=== PATIENT | male | born 1980 ===

== ENCOUNTER 2017-08-13 10:21 | Emergency (ER) | payer SELFPAY ==
[2017-08-13 10:38] VITALS: BP 115/69; PULSE 78; RESP 20; TEMP 98.4; O2SAT 98
--- NOTE | 2017-08-13 13:16 | ED PDOC ---
HPI: Back Time Seen by Provider: 08/13/17 10:55 Chief Complaint (Nursing): Back Pain Chief Complaint (Provider): back pain History Per: Patient History/Exam Limitations: no limitations Additional Complaint(s): 37yo M in ED for eval of lower back pain sustained this AM after lifting books noted sharp intense pain to mid lower back with radiation to LE and associated tingling to LE with worsened pain with ROM of back. no saddle anaesthesia no incontinence no nausea or vomiting. Past Medical History Reviewed: Historical Data, Nursing Documentation, Vital Signs Vital Signs: Last Vital Signs Temp 98.4 F 08/13/17 10:37 Pulse 78 08/13/17 10:37 Resp 20 08/13/17 10:37 BP 115/69 08/13/17 10:37 Pulse Ox 98 08/13/17 10:37 - Family History Family History: States: No Known Family Hx - Home Medications Home Medications: Ambulatory Orders Medication Instructions Recorded Cyclobenzaprine [Cyclobenzaprine 10 mg PO BID #14 tab 08/13/17 HCl] Ibuprofen [Motrin] 400 mg PO Q6 #30 tab 08/13/17 Tramadol HCl [Ultram] 50 mg PO Q6 #15 tab 08/13/17 - Allergies Allergies/Adverse Reactions: Allergies Allergy/AdvReac Type Severity Reaction Status Date / Time No Known Allergies Allergy Verified 08/13/17 10:36 Review of Systems ROS Statement: Except As Marked, All Systems Reviewed And Found Negative Constitutional: Negative for: Fever, Chills Musculoskeletal: Positive for: Back Pain Physical Exam - Reviewed Nursing Documentation Reviewed: Yes Vital Signs Reviewed: Yes - Physical Exam Appears: Positive for: Non-toxic, No Acute Distress, Uncomfortable Head Exam: Positive for: ATRAUMATIC, NORMAL INSPECTION, NORMOCEPHALIC Skin: Positive for: Normal Color, Warm Cardiovascular/Chest: Positive for: Regular Rate, Rhythm Respiratory: Positive for: CNT, Normal Breath Sounds Gastrointestinal/Abdominal: Positive for: Normal Exam, Bowel Sounds, Soft. Negative for: Tenderness Back: Positive for: Vertebral Tenderness (lumbar midline tenderness. ), Decreased ROM, Muscle Spasm. Negative for: L CVA Tenderness, R CVA Tenderness Extremity: Positive for: Normal ROM Neurologic/Psych: Positive for: Alert, Oriented - ECG O2 Sat by Pulse Oximetry: 98 - CT Scan/US ct scan Other Rad Studies (CT/US): Radiology Report Reviewed (multiple disc buldge) - Progress ED Course And Treament: pt given torodol and flexril and re-evaluated. pt still with pain will get Ct scan. of lumbar spine. Medical Decision Making Medical Decision Making: pt with disc buldge will need pain control and f.u with ortho an physical tx. Disposition - Clinical Impression Clinical Impression: Bulging lumbar disc - Patient ED Disposition Is Patient to be Admitted: No Counseled Patient/Family Regarding: Studies Performed, Diagnosis, Need For Followup, Rx Given - Disposition Referrals: FAMILY PROVIDER,NO [Primary Care Provider] - [facility] [Outside] [facility] [Outside] [facility] [Outside] Disposition: Routine/Home Disposition Time: 13:22 Condition: STABLE Prescriptions: Cyclobenzaprine [Cyclobenzaprine HCl] 10 mg PO BID #14 tab Ibuprofen [Motrin] 400 mg PO Q6 #30 tab Tramadol HCl [Ultram] 50 mg PO Q6 #15 tab Instructions: Lumbar Disc Herniation (ED), Back Exercises (ED) Forms: [facility] ED School/Work Excuse
--- NOTE | 2017-08-13 13:18 | CT ---
PROCEDURE: CT Lumbar Spine without contrast HISTORY: injury to lumbar from work COMPARISON: None. TECHNIQUE: Axial computed tomography images were obtained of the lumbar spine without the use of intravenous contrast. Coronal and sagittal reformatted images were created and reviewed. Radiation dose: Total exam DLP = 313.82 mGy-cm. This CT exam was performed using one or more of the following dose reduction techniques: Automated exposure control, adjustment of the mA and/or kV according to patient size, and/or use of iterative reconstruction technique. FINDINGS: VERTEBRAE: The vertebral bodies are maintained in height. The transverse processes and posterior elements appear intact. Normal vertebral alignment is maintained. DISCS/SPINAL CANAL/NEURAL FORAMINA: L1-2: Unremarkable. L2-3: Unremarkable. L3-4: Diffuse posterior disc bulge. Mild right neural foraminal stenosis. No left neural foraminal stenosis. No central spinal canal stenosis. L4-5: Broad-based midline disc herniation superimposed upon diffuse disc bulge. Mild bilateral neural foraminal stenosis. There is central spinal stenosis, mild. L5-S1: Diffuse large posterior disc bulge without focal herniation. Mild right and moderate left neural foraminal stenosis. There is central canal stenosis. PARASPINAL SOFT TISSUES: Unremarkable. OTHER FINDINGS: None. IMPRESSION: Disc bulge L3-4, L4-5 and L5-S1. Broad-based midline disc herniation superimposed upon a disc bulge at L4-5. Multilevel neural foraminal stenosis as described. Central spinal stenosis noted at L4-5 and L5-S1. No fracture or dislocation.
== END 2017-08-13 14:15 | disposition home or self-care (01) ==
LOC: H.ER 10:21 → SUPCPDRO 10:21 → H.ER 14:15
DX: M51.26 Other intervertebral disc displacement, lumbar region (principal); M48.061 Spinal stenosis, lumbar region without neurogenic claudication
CPT/HCPCS: 72131; 96372; 99283; J1885